=== PATIENT | male | born 1960 | race Caucasian/White ===

== ENCOUNTER → 2018-12-22 17:02 | Outpatient (CLI) | payer MEDICAID, SELFPAY ==
[2018-12-22 17:38] LABS: Basophils % 0.7 % (0.1-2.0); Eosinophils # 0.2 K/mm3 (0.0-0.4); Eosinophils % 3.4 % (0.1-12.0); Hemoglobin 13.5 g/dL (14.1-18.0); Lymphocytes # 1.5 K/mm3 (0.7-4.5); Lymphocytes % 26.9 % (10-50); Mean Corpuscular HGB Conc 32.2 g/dL (31.8-35.4); Mean Corpuscular Hemoglobin 32.8 pg (27.0-31.2); Mean Corpuscular Volume 101.8 fl (80-94); Mean Platelet Volume 7.5 fl (7.4-10.4); Monocytes # 0.5 K/mm3 (0.1-1.0); Monocytes % 9.1 % (1.7-9.3); Neutrophils # 3.3 K/mm3 (1.8-7.8); Platelet Count 225 K/mm3 (142-424); Red Blood Count 4.12 M/mm3 (4.60-6.20); Red Cell Distribution Width 15.4 % (11.5-17.5); White Blood Count 5.5 K/mm3 (4.8-10.8)
[2018-12-22 18:31] LABS: Alanine Aminotransferase 91 U/L (12-78); Albumin Level 4.3 gm/dL (3.4-5.0); Albumin/Globulin Ratio 1.3 (1.1-1.8); Alkaline Phosphatase 68 U/L (46-116); Aspartate Amino Transferase 90 U/L (15-37); Bilirubin,Total 0.7 mg/dL (0.2-1.0); Blood Urea Nitrogen 11 mg/dL (7-18); Calcium 9.3 mg/dL (8.5-10.1); Carbon Dioxide 24 mmol/L (21.0-32.0); Chloride 100 mmol/L (98-107); Chol/HDL Ratio 1.8 (1-3.5); Cholesterol 246 mg/dL (140-200); Estimated Glomerular Filt Rate 87 ml/min (>60); GFR (African American) 106 ML/MIN (>60); Globulin 3.4 gm/dl (1.3-3.2); Glucose 69 mg/dL (74-106); HDL Cholesterol 136 mg/dL (27-67); LDL Cholesterol 99 mg/dL (0-130); Prostate Specific Ag Screen 3.2 ng/mL (0.0-4.0); Sodium 137 mmol/L (136-145); T4 (Thyroxine) 5.8 ug/dl (4.7-13.3); Thyroid Stimulating Hormone 1.74 uIU/ml (0.358-3.740); Total Protein,Serum 7.7 gm/dL (6.4-8.2); Triglycerides 54 mg/dL (30-200); VLDL Cholesterol 11 mg/dL (0-40)
[2018-12-24 11:33] LABS: Hep A Ab, IgM Negative (Negative); Hepatitis B Core Antibody IgM Negative (Negative); Hepatitis B Surface Antigen Negative (Negative)
[2018-12-25 22:50] LABS: Folate 2.8 ng/mL (>3.0); Hepatitis C Antibody <0.1 s/co ratio (0.0-0.9); Vitamin B12 842 pg/mL (232-1245); Vitamin D 25 Hydroxy 38.7 ng/mL (30.0-100.0)
== END ==
PROVIDERS: Visit Provider Physician Assistant
DX: R53.83 Other fatigue (principal); R71.8 Other abnormality of red blood cells; R94.5 Abnormal results of liver function studies
CPT/HCPCS: 80053; 80061; 80074; 82607; 82652; 82746; 84436; 84443; 85025; G0103

== ENCOUNTER → 2019-01-10 14:20 | Outpatient (CLI) | payer MEDICAID, SELFPAY ==
[2019-01-10 15:33] LABS: C-Reactive Protein < 0.2 mg/L (0.0-0.9)
[2019-01-10 17:07] LABS: Erythrocyte Sedimentation Rate 10 mm/hr (0-20)
[2019-01-12 11:17] LABS: Anti-Centromere B Antibodies <0.2 AI (0.0-0.9); Anti-Jo-1 <0.2 AI (0.0-0.9); Anti-Smith Antibody <0.2 AI (0.0-0.9); Antichromatin Antibodies <0.2 AI (0.0-0.9); Antiscleroderma-70 Antibodies <0.2 AI (0.0-0.9); RNP Antibodies 0.2 AI (0.0-0.9); Sjogren's Anti-SS-A <0.2 AI (0.0-0.9); Sjogren's Anti-SS-B <0.2 AI (0.0-0.9)
[2019-01-12 13:18] LABS: Anti-DNA (DS) Ab Qn 1 IU/mL (0-9); RA Latex Turbid. 19.2 IU/mL (0.0-13.9)
[2019-01-13 07:10] LABS: Anti-Cyclic Citrullinated Pept 3 units (0-19)
== END ==
PROVIDERS: Visit Provider Physician Assistant
DX: M19.90 Unspecified osteoarthritis, unspecified site (principal)
CPT/HCPCS: 85651; 86140; 86200; 86225; 86235; 86431

== ENCOUNTER 2019-04-05 12:54 | Outpatient (RCR) | payer MEDICAID, SELFPAY ==
--- NOTE | 2019-04-05 14:06 | HMH.PTOPEV ---
PT Outpatient Evaluation Rehab PT Outpatient Evaluation Start: 04/05/19 13:29 Freq: Status: Active Protocol: Document 04/05/19 13:29 MANJIT (Rec: 04/05/19 14:06 MANJIT [id number]) Electronically Signed By Kirill Kaplan, PT 04/05/19 13:29 Outpatient Therapy Subjective History Subjective History Pt reports insidious onset neck pain beginning ~6 yrs ago . Pt reports neck pain has progressed to B UE radicular s /s including weakness, N&T, and pain (R>L). Pt also reports L SH fx. w/ORIF sx. on 02/17/19, which has improved L SH, d/t previous decreased function of OA. Pt reports previous MRI of cervical spine has revealed DDD at multiple levels. Chief Complaint Pain,Spasms,Stiff,Clicks, Swelling,Weakness Symptom Type Ache,Throb,Sharp,Dull,Stabbing ,Burning,Numbness,Tingling, Shooting Symptoms Relieved By Rest/Positioning,Ice Symptoms Aggravated By Physical Activity,Lifting Prior Functional Limitations Reaching,Lifting,Housework Current Functional Limitations Reaching,Lifting,Housework Symptom Description Constant but Variable Level of pain today (0-10) 8 Pain scale - at its best (0-10) 8 Pain scale - at its worst (0-10) 9 Cervical Eval Palpation Cervical Muscles R Cervical Paraspinal,L Cervical Paraspinal,R Suboccipital,L Suboccipital,R CT Junction,L CT Junction,R Upper Trapezius,L Upper Trapezius,R Thoracic Paraspinals,L Thoracic Paraspinals Cervical/Thoracic Palpation Findings Tenderness,Spasm,Trigger Point ,Muscle Guarding Posture Head/C-Spine Posture Sitting Position Flexed Head/C-Spine Posture Standing Position Flexed Flexibility Deficits Upper Trapezius Muscle Length (L) Moderate Tightness,(R) Severe Tightness Levaetor Scapulae Muscle Length (R) Moderate Tightness,(L) Moderate Tightness Scalene Group Muscle Length (R) Moderate Tightness,(L) Moderate Tightness Pectoralis Major Muscle Length (R) Severe Tightness,(L) Severe Tightness Pectoralis Minor Muscle Length (R) Moderate Tightness,(L)
== END 2019-04-05 15:59 | disposition home or self-care (01) ==
LOC: PT 12:54
PROVIDERS: Visit Provider Physician Assistant
DX: M47.22 Other spondylosis with radiculopathy, cervical region (principal); M25.511 Pain in right shoulder
CPT/HCPCS: 97010; 97014; 97035; 97110; 97163; G0283

== ENCOUNTER → 2019-04-12 09:23 | Outpatient (CLI) | payer MEDICAID, SELFPAY ==
[2019-04-12 09:45] LABS: Basophils # 0.1 K/mm3 (0-0.2); Basophils % 0.8 % (0.1-2.0); Eosinophils # 0.8 K/mm3 (0.0-0.4); Eosinophils % 8.8 % (0.1-12.0); Hematocrit 41.7 % (42.0-52.0); Hemoglobin 13.8 g/dL (14.1-18.0); Lymphocytes # 1.8 K/mm3 (0.7-4.5); Lymphocytes % 19.7 % (10-50); Mean Corpuscular HGB Conc 33.1 g/dL (31.8-35.4); Mean Corpuscular Hemoglobin 33.8 pg (27.0-31.2); Mean Corpuscular Volume 102.1 fl (80-94); Mean Platelet Volume 7.8 fl (7.4-10.4); Monocytes # 0.5 K/mm3 (0.1-1.0); Monocytes % 5.8 % (1.7-9.3); Neutrophils # 5.9 K/mm3 (1.8-7.8); Neutrophils % 64.8 % (37.0-80.0); Platelet Count 307 K/mm3 (142-424); Red Blood Count 4.09 M/mm3 (4.60-6.20); Red Cell Distribution Width 12.8 % (11.5-17.5)
[2019-04-12 11:33] LABS: Alanine Aminotransferase 23 U/L (12-78); Albumin Level 3.8 gm/dL (3.4-5.0); Albumin/Globulin Ratio 1.3 (1.1-1.8); Alkaline Phosphatase 70 U/L (46-116); Anion Gap 11.1 mEq/L (5-15); Aspartate Amino Transferase 24 U/L (15-37); Bilirubin,Total 0.6 mg/dL (0.2-1.0); Blood Urea Nitrogen 14 mg/dL (7-18); Calcium 9.4 mg/dL (8.5-10.1); Carbon Dioxide 28 mmol/L (21.0-32.0); Chloride 104 mmol/L (98-107); Chol/HDL Ratio 1.7 (1-3.5); Cholesterol 189 mg/dL (140-200); Creatinine,Serum 0.88 mg/dL (0.70-1.30); Estimated Glomerular Filt Rate 89 ml/min (>60); GFR (African American) 108 ML/MIN (>60); Globulin 2.9 gm/dl (1.3-3.2); Glucose 79 mg/dL (74-106); HDL Cholesterol 110 mg/dL (27-67); LDL Cholesterol 71 mg/dL (0-130); Potassium 5.1 mmoL/L (3.5-5.1); Sodium 138 mmol/L (136-145); Total Protein,Serum 6.7 gm/dL (6.4-8.2); Triglycerides 38 mg/dL (30-200); VLDL Cholesterol 8 mg/dL (0-40)
[2019-04-13 10:56] LABS: Vitamin D 25 Hydroxy 34.2 ng/mL (30.0-100.0)
== END ==
PROVIDERS: Visit Provider Physician Assistant
DX: E78.5 Hyperlipidemia, unspecified (principal)
CPT/HCPCS: 36415; 80053; 80061; 82652; 85025

== ENCOUNTER → 2019-07-12 14:51 | Outpatient (CLI) | payer OTHER, SELFPAY ==
--- NOTE | 2019-07-12 14:55 | XR_ITS ---
PROCEDURE: XR FINGER LT MIN 2V CLINICAL INDICATION: left index finger fracture fu Follow-up fracture COMPARISON: XR HAND LT MIN 3V from 06/21/2019 FINDINGS: There is a mildly displaced avulsion fracture involving the dorsal and proximal aspect of the distal phalanx of the index finger at the DIP joint with mild distraction the dorsal fracture fragment not significantly changed. Other findings:None. IMPRESSION: No change mildly displaced avulsion fracture of the distal phalanx dorsally at the DIP Dictated by: Tony Lopes MD 07/12/2019 15:22 Electronically signed by Tony Lopes MD in [place] 07/12/2019 15:22
== END ==
PROVIDERS: PCP Physician Assistant; Visit Provider Orthopaedic Surgery
DX: S62.661A Nondisplaced fracture of distal phalanx of left index finger, initial encounter for closed fracture (principal)
CPT/HCPCS: 73140

== ENCOUNTER 2019-07-12 15:44 | Outpatient (RCR) | payer OTHER, SELFPAY | END 2019-07-12 16:30 | disposition home or self-care (01) | LOC: OT 15:44 | PROVIDERS: Visit Provider Orthopaedic Surgery | DX: G56.03 Carpal tunnel syndrome, bilateral upper limbs (principal) | CPT/HCPCS: 97763 ==

== ENCOUNTER → 2019-07-24 08:12 | Outpatient (POV) | payer OTHER, SELFPAY | PROVIDERS: Visit Provider Specialist | DX: M79.642 Pain in left hand (principal); M79.641 Pain in right hand; R20.2 Paresthesia of skin | CPT/HCPCS: 95886; 95909 ==

== ENCOUNTER → 2019-08-08 14:09 | Outpatient (CLI) | payer OTHER, SELFPAY ==
--- NOTE | 2019-08-08 14:15 | XR_ITS ---
PROCEDURE: XR FINGER LT MIN 2V CLINICAL INDICATION: left index finger fx fu, in splint COMPARISON: XR FINGER LT MIN 2V from 07/12/2019 FINDINGS: A splint is in place Avulsion fracture of the dorsal and proximal aspect of the distal phalanx once again noted with mild displacement the dorsal fracture fragment. This overall this is not significantly changed. IMPRESSION: No change mildly displaced avulsion fracture dorsal and proximal aspect of the distal phalanx Dictated by: Tony Lopes MD 08/08/2019 14:39 Electronically signed by Tony Lopes MD in [place] 08/08/2019 14:39
== END ==
PROVIDERS: PCP Physician Assistant; Visit Provider Orthopaedic Surgery
DX: S62.661A Nondisplaced fracture of distal phalanx of left index finger, initial encounter for closed fracture (principal)
CPT/HCPCS: 73140

== ENCOUNTER → 2019-08-11 09:15 | Outpatient (CLI) | payer OTHER, SELFPAY ==
[2019-08-11 09:42] LABS: Basophils # 0.1 K/mm3 (0-0.2); Eosinophils # 0.7 K/mm3 (0.0-0.4); Hematocrit 42.6 % (42.0-52.0); Hemoglobin 13.8 g/dL (14.1-18.0); Lymphocytes # 2.6 K/mm3 (0.7-4.5); Lymphocytes % 23.7 % (10-50); Mean Corpuscular HGB Conc 32.4 g/dL (31.8-35.4); Mean Corpuscular Hemoglobin 31.4 pg (27.0-31.2); Mean Corpuscular Volume 96.8 fl (80-94); Mean Platelet Volume 7.2 fl (7.4-10.4); Monocytes # 0.6 K/mm3 (0.1-1.0); Monocytes % 5.7 % (1.7-9.3); Neutrophils # 6.9 K/mm3 (1.8-7.8); Neutrophils % 63.5 % (37.0-80.0); Platelet Count 307 K/mm3 (142-424); White Blood Count 10.8 K/mm3 (4.8-10.8)
--- NOTE | 2019-08-11 10:00 | XR_ITS ---
PROCEDURE: XR CHEST 2V CLINICAL HISTORY: TOBACCO USE, PRE OP COMPARISON: XR CHEST PORTABLE from 02/21/2019 XR RIBS RT MIN 3V W CXR1V from 03/26/2019 FINDINGS: The cardiomediastinal silhouette and pulmonary vascularity are within normal limits. COPD with hyperinflation and eventration of the hemidiaphragms. No lobar consolidation or collapse. Old bilateral rib fractures. IMPRESSION: COPD. No change with no acute finding Dictated by: Tony Lopes MD 08/11/2019 11:29 Electronically signed by Tony Lopes MD in [place] 08/11/2019 11:29
--- NOTE | 2019-08-11 10:14 | ECG_ITS ---
APPROVED REPORT Exam: Resting ECG HR:105 bpm ECG Measurements Heart Rate 105 AXES DC 130 P 80 QRSd 74 QRS 93 QT 316 T 38 QTc 417 <Conclusion> Sinus tachycardia Rightward axis Borderline ECG Electronically signed by : Nico Nick, 08/11/2019 18:27:42
[2019-08-11 10:47] LABS: Anion Gap 14.9 mEq/L (5-15); Blood Urea Nitrogen 13 mg/dl (9-20); Calcium 10.2 mg/dl (8.4-10.2); Carbon Dioxide 25 mmol/L (22.0-30.0); Chloride 100 mmol/L (98-107); Estimated Glomerular Filt Rate 87 ml/min (>60); GFR (African American) 105 ML/MIN (>60); Glucose 110 mg/dl (74-100); Potassium 3.9 mmoL/L (3.5-5.1); Sodium 136 mmol/L (136-145)
== END ==
PROVIDERS: Visit Provider Orthopaedic Surgery
DX: Z01.818 Encounter for other preprocedural examination (principal); G56.02 Carpal tunnel syndrome, left upper limb
CPT/HCPCS: 36415; 71046; 80048; 85025; 93005